=== PATIENT | female | born 1965 | race Caucasian/White ===

== ENCOUNTER 2018-12-21 20:08 | Emergency (ER) | payer BC ==
[~2018-12-21] VITALS: Ht 160 cm; Wt 61.2 kg
--- NOTE | 2018-12-21 20:41 | NUR ---
Patient ambulated with stable gait. A/Ox4. Speech is clear, speaks in complete sentences. Patient came for c/o beesting left hand digit 5. Respiratory even and unlabored, no cough no sob. No cardiovascular distress noted, all pulses palpable. Denies any n/v/d.
[2018-12-21] MEDS ORDERED: predniSONE 20 MG TABLET ONE (21:13)
[2018-12-21] MEDS ORDERED: predniSONE 20 MG TABLET PO ONE (21:15)
--- NOTE | 2018-12-21 21:31 | NUR ---
Patient discharged to home in stable conditon. Written and verbal after care instructions given. Patient verbalizes understanding of instructions. Patient ambulated with stable gait.
[2018-12-21 21:50] VITALS: BP 142/82
== END 2018-12-21 21:31 | disposition home or self-care (01) ==
LOC: ER 20:17
DX: T63.441A Toxic effect of venom of bees, accidental (unintentional), initial encounter (principal); Y92.89 Other specified places as the place of occurrence of the external cause
CPT/HCPCS: 99283; J7512; A4663